=== PATIENT | male | born 2000 | race Caucasian/White ===

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

== ENCOUNTER 2021-07-05 23:52 | Emergency (ER) | payer OTHER ==
[2021-07-06] MEDS ORDERED: Ketorolac 30 MG/ML SDV IM ONE (01:45)
[2021-07-06] MEDS ORDERED: Orphenadrine 60 MG/2 ML Inj IM ONE (01:45)
[2021-07-06] MEDS ORDERED: Ondansetron 4 MG Tab.DIS PO ONE (01:46)
--- NOTE | 2021-07-06 01:48 | EDM.PDOC ---
ED HPI GENERAL MEDICAL PROBLEM - General Chief Complaint: Back Pain or Injury Stated Complaint: BACK PAIN Time Seen by Provider: 07/06/21 01:46 Source of Information: Reports: Patient History Limitations: Reports: No Limitations - History of Present Illness INITIAL COMMENTS - FREE TEXT/NARRATIVE: 21-year-old male with history of L1 lumbar compression fracture presents with low back pain. He does vomiting this evening and felt pressure sensation in his low back. Pain is moderate, constant, nonradiating, sharp, no alleviating or exacerbating factors. He denies fever, chills, history of IV drug use, urinary or fecal incontinence, lower extremity numbness or weakness. ROS: A 10-point review of systems, other than pertinent positives and negatives as stated per HPI, is otherwise negative Past medical history: No additional pertinent history Past Surgical history: No additional pertinent history Social history: No additional pertinent history Family history: No additional pertinent history PHYSICAL EXAM General: AOx4, GCS = 15, mild distress HEENT: dry mucous membrane Neck: supple, no meningismus, no Kernig or Brudzinski Cardiac: S1S2 RRR Respiratory: CTAB, no crackles or rales, no wheezing Abdomen: Soft, nontender, no rebound or guarding, nondistended, no pulsatile mass. Back: No tenderness to lumbar spine, mild lumbar paraspinal muscle tenderness. Negative straight leg raise. Musculoskeletal: NVI distally, no deformity Neuro: No focal deficits, CN 2 - 12 WNL. Back Pain Score (Numeric/FACES): 10 - Related Data Allergies Allergy/AdvReac Type Severity Reaction Status Date / Time amoxicillin trihydrate Allergy Swelling Verified 07/29/19 07:11 [From Augmentin] metoclopramide HCl Allergy Swelling Verified 07/29/19 07:11 [From Reglan] potassium clavulanate Allergy Swelling Verified 07/29/19 07:11 [From Augmentin] unknown antibiotic ending Allergy Swelling Uncoded 03/31/14 18:59 ZINE Home Meds: Home Meds Acetaminophen/oxyCODONE [Percocet 325-5 MG] 1 each PO Q8HR PRN 5 Days #15 tab 07/29/19 [Rx] Ibuprofen 600 mg PO Q8HR #60 tablet 07/29/19 [Rx] Cyclobenzaprine [Flexeril] 5 mg PO BID PRN #10 tab 07/06/21 [Rx] Ibuprofen 800 mg PO Q6HR #15 tablet 07/06/21 [Rx] Past Medical History - Infectious Disease History Infectious Disease History: Reports: None - Past Surgical History HEENT Surgical History: Reports: Tonsillectomy Social & Family History - Family History Family Medical History: No Pertinent Family History ED ROS GENERAL - Review of Systems Review Of Systems: See Below (see dictation) ED EXAM,LOWER BACK PAIN/INJURY - Physical Exam Exam: See Below (see dictation) Course - Vital Signs Last Recorded V/S: Last Vital Signs Temp 96.5 F L 07/05/21 23:57 Pulse 95 07/06/21 01:33 Resp 16 07/06/21 01:33 BP 126/73 07/06/21 01:33 Pulse Ox 99 07/06/21 01:33 - Orders/Labs/Meds Meds: Medications Discontinued Medications Generic Name Dose Route Start Last Admin Trade Name Freq PRN Reason Stop Dose Admin Ketorolac Tromethamine 30 mg 07/06/21 01:45 07/06/21 02:13 Ketorolac 30 Mg/Ml Sdv IM 07/06/21 01:46 30 mg ONETIME ONE Administration Ondansetron HCl 4 mg 07/06/21 01:46 07/06/21 02:07 Ondansetron 4 Mg Tab.Dis PO 07/06/21 01:47 4 mg ONETIME ONE Administration Orphenadrine Citrate 60 mg 07/06/21 01:45 07/06/21 02:12 Orphenadrine 60 Mg/2 Ml Inj IM 07/06/21 01:46 60 mg ONETIME ONE Administration - Re-Assessments/Exams Free Text/Narrative Re-Assessment/Exam: 07/06/21 01:47 Given IM Toradol and Norflex. 07/06/21 02:33 His pain improved and is currently stable for discharge. I performed a repeat exam and did not appreciate new abnormal findings. Patient exhibits normal vital signs and has a normal gait on road test. I advised the patient to return to the ER for reevaluation if symptoms worsened, including fever, worsening pain, or any other worrisome symptoms. I instructed the patient to follow up with PCP within 2-3 days. MEDICAL DECISION MAKING: This patient was evaluated during the COVID-19 pandemic where resources and capacity might be affected. I reviewed the patients past medical records, lab and radiographic findings. I discussed the case with the patient. My differential diagnosis included: Low back strain, herniation, patient's back pain is suggestive of musculoskeletal strain. There are no complaints of urinary or fecal incontinence, focal numbness or weakness. The patient has a normal gait in the ER. There is no evidence of fever, IV drug use, recent back surgery, or immunocompromised state. I do not suspect caude equine syndrome or cord compression which would warrant further imaging. Departure - Departure Time of Disposition: 02:33 Disposition: Home, Self-Care 01 Condition: Good Clinical Impression: Low back strain - Discharge Information *PRESCRIPTION DRUG MONITORING PROGRAM REVIEWED*: Not Applicable *COPY OF PRESCRIPTION DRUG MONITORING REPORT IN PATIENT [place]: Not Applicable Prescriptions: Cyclobenzaprine [Flexeril] 5 mg PO BID PRN #10 tab PRN Reason: Pain Ibuprofen 800 mg PO Q6HR #15 tablet Instructions: Lumbosacral Strain Referrals: PCP,None [Primary Care Provider] - Forms: ED Department Discharge Additional Instructions: The need for follow-up, as well as the timing and circumstances, are variable depending upon the specifics of your emergency department visit. If you don't have a primary care physician on staff, we will provide you with a referral. We always advise you to contact your personal physician following an emergency department visit to inform them of the circumstance of the visit and for follow-up with them and/or the need for any referrals to a consulting specialist. The emergency department will also refer you to a specialist when appropriate. This referral assures that you have the opportunity for follow-up care with a specialist. All of these measure are taken in an effort to provide you with optimal care, which includes your follow-up. Under all circumstances we always encourage you to contact your private physician who remains a resource for coordinating your care. When calling for follow-up care, please make the office aware that this follow-up is from your recent emergency room visit. If for any reason you are refused follow-up, please contact the [facility] Emergency Department at and asked to speak to the emergency department charge nurse. If you do not have a primary care doctor, please follow up with the clinics below within 3-[address] [facility] - Primary Care [address] [place] [id number] [facility] [address] [place] [id number] Sepsis Event Note (ED) - Evaluation Sepsis Screening Result: No Definite Risk - Focused Exam Vital Signs: Vital Signs Temp Pulse Resp BP Pulse Ox 07/06/21 01:33 95 16 126/73 99 07/05/21 23:57 96.5 F L 89 16 129/69 96
--- NOTE | 2021-07-06 02:24 | CR ---
INDICATION: Low back pain TECHNIQUE: Lumbar spine radiograph 5 views with flexion-extension COMPARISON: None FINDINGS: Bone: A mild compression deformity along the superior endplate of L1 is noted without interval change. Alignment is normal. No dynamic instability is seen on flexion-extension views. Disc: The disc spaces are unremarkable in appearance. The facet joints are unremarkable. Soft tissue: Unremarkable. No radiopaque foreign bodies are seen. IMPRESSION: 1. A mild compression deformity along the superior endplate of L1 is noted without interval change. Dictated by John Lazaro MD @ 07/06/2021 2:22:17 AM Dictated by: John Lazaro MD @ 07/06/2021 02:22:21 (Electronically Signed)
== END 2021-07-06 02:46 | disposition home or self-care (01) ==
LOC: MW.ED 23:52
DX: S39.012A Strain of muscle, fascia and tendon of lower back, initial encounter (principal); Z88.0 Allergy status to penicillin; Z88.5 Allergy status to narcotic agent; X50.1XXA Overexertion from prolonged static or awkward postures, initial encounter
CPT/HCPCS: 72110; 96372; 99283; A9270; J1885; J2360

== ENCOUNTER 2021-08-14 20:23 | Emergency (ER) | payer OTHER ==
[2021-08-14] MEDS ORDERED: Sodium Chloride 0.9% 1,000 ML IV STA (22:00)
[2021-08-14] MEDS ORDERED: LORazepam 2 MG/ML SDV IVPUSH ONE (22:01)
[2021-08-14 22:40] LABS: BLOOD UREA NITROGEN,BUN 9 mg/dL (7.0-18.0); CHLORIDE,CL 98 mmol/L (98-107); GLUCOSE RANDOM 118 mg/dL (74-106); POTASSIUM,K 4.5 mmol/L (3.5-5.1); SODIUM,NA 136 mmol/L (136-148)
== END 2021-08-14 23:31 | disposition home or self-care (01) ==
LOC: MW.ED 20:23
DX: F41.0 Panic disorder [episodic paroxysmal anxiety] (principal); Z88.0 Allergy status to penicillin; Z88.8 Allergy status to other drugs, medicaments and biological substances
CPT/HCPCS: 36415; 71045; 80053; 80305; 81001; 85025; 93005; 96374; 99284; J2060; J7040

== ENCOUNTER 2023-03-18 23:56 | Emergency (ER) | payer OTHER ==
[2023-03-19] MEDS ORDERED: Ibuprofen 400 MG Tab PO ONE (00:41)
== END 2023-03-19 00:46 ==
LOC: MW.ED 23:56
DX: Z02.89 Encounter for other administrative examinations (principal); S70.12XA Contusion of left thigh, initial encounter; S70.11XA Contusion of right thigh, initial encounter; Z88.0 Allergy status to penicillin; Z88.1 Allergy status to other antibiotic agents; Z88.8 Allergy status to other drugs, medicaments and biological substances; V89.2XXA Person injured in unspecified motor-vehicle accident, traffic, initial encounter
CPT/HCPCS: 99284; A9270; 99283

== ENCOUNTER 2023-03-20 01:29 | Emergency (ER) | payer OTHER ==
[2023-03-20] MEDS ORDERED: Ketorolac 30 MG/ML SDV IVPUSH ONE (01:42)
[2023-03-20] MEDS ORDERED: Acetaminophen/HYDROcodone 325-5 MG Tab PO ONE ×2 (01:42→03:23)
[2023-03-20] MEDS ORDERED: Ondansetron 4 MG/2 ML SDV IVPUSH ONE (01:43)
== END 2023-03-20 05:03 | disposition home or self-care (01) ==
LOC: MW.ED 01:29
DX: S32.000A Wedge compression fracture of unspecified lumbar vertebra, initial encounter for closed fracture (principal); S20.319A Abrasion of unspecified front wall of thorax, initial encounter; S30.811A Abrasion of abdominal wall, initial encounter; S30.810A Abrasion of lower back and pelvis, initial encounter; Y04.0XXA Assault by unarmed brawl or fight, initial encounter
CPT/HCPCS: 70450; 70486; 71260; 72125; 72128; 72131; 74177; 96374; 96375; 99284; A9270; J1885; J2405